=== PATIENT | male | born 1985 | race Two or more races ===

== ENCOUNTER → 2024-10-19 | Emergency (ER) | payer OTHER ==
[~2024-10-19] VITALS: Ht 175.3 cm; Wt 81.6 kg
[~2024-10-19] MED LIST: DEXAMETHASONE SODIUM PHOSPHATE 4 MG/ML VIAL IM ONE; DIPHENHYDRAMINE HCL 50 MG/ML VIAL 1ML IM ONE
== END | disposition home or self-care (01) ==
LOC: ER 10:39
DX: L25.9 Unspecified contact dermatitis, unspecified cause (principal); Z88.8 Allergy status to other drugs, medicaments and biological substances